=== PATIENT | female | born 1985 | race Caucasian/White ===

== ENCOUNTER 2016-06-18 08:00 | Outpatient (CLI) | payer MEDICAID | END 2016-06-18 08:01 | disposition home or self-care (01) | DX: E03.9 Hypothyroidism, unspecified (principal) ==

== ENCOUNTER 2017-01-04 14:15 | Emergency (ER) | payer MEDICAID ==
--- NOTE | 2017-01-04 14:54 | ED Physician Documentation ---
PD HPI UPPER EXT INJURY - Stated complaint Stated Complaint: R HAND SWELLING - Chief complaint Chief Complaint: Ext Problem - History obtained from History obtained from: Caregiver (Ana María) - History of Present Illness Location: Other (31-year-old woman with Down syndrome, fairly uncooperative and nonverbal. After playing outside today the caregiver noticed a red spot on her palm, no clear injury. Tetanus is up-to-date.) Review of Systems Constitutional: denies: Fever, Chills PD PAST MEDICAL HISTORY - Present Medications Home Medications: Ambulatory Orders Medication Instructions Recorded Confirmed Clindamycin [Cleocin] 300 mg PO Q6H 7 Days 01/04/17 PD ED PE NORMAL - Vitals Vital signs reviewed: Yes - General General: Other (Somewhat cooperative, nonverbal, Down's facies.) - Extremities Extremities: Other (There is a red spot, on the palm, right side, near the third MCP with some surrounding redness but no palpable foreign body. Could be an infection puncture wound. No fluctuance or abscess. She is moving her fingers well ruling out tenosynovitis.) PD MEDICAL DECISION MAKING - ED course ED course: Per the caregiver she would have to be sedated for any intervention/incision and drainage. She is eating during the examination. We discussed options and after discussion the decision was made to trial antibiotics but the caregiver will keep a close eye on the site and return if worse. Departure - Departure Disposition: 01 Home, Self Care Clinical Impression: Cellulitis Qualifiers: Site of cellulitis: extremity Site of cellulitis of extremity: upper extremity Laterality: right Qualified Code(s): L03.113 - Cellulitis of right upper limb Condition: Good Record reviewed to determine appropriate education?: Yes Instructions: Cellulitis Dc Prescriptions: Clindamycin [Cleocin] 300 mg PO Q6H 7 Days Comments: If the redness worsens, if she stops using the hand, or if she develops a fever , or if not better in the next couple of days, please return for reevaluation, ideally do not let her eat or drink for 4 hours prior to arrival for potential sedation.
== END 2017-01-04 15:06 | disposition home or self-care (01) ==
LOC: ED 14:15
DX: L03.113 Cellulitis of right upper limb (principal); Q90.9 Down syndrome, unspecified
CPT/HCPCS: 99282; 99283

== ENCOUNTER 2017-02-02 11:42 | Outpatient (CLI) | payer MEDICAID ==
--- NOTE | 2017-02-04 12:31 | Ultrasound Report ---
SUPERFICIAL ULTRASOUND OF THE RIGHT PALM: 02/02/2017 CLINICAL INDICATION: Rule out foreign body. COMPARISON: None. FINDINGS: Over the area of interest, the right palm, there is a 1.7 cm thin echogenic structure that appears to be a foreign body. There is a small amount of surrounding edema. No other sonographic a bnormality is seen. IMPRESSION: RIGHT PALM FOREIGN BODY DESCRIBED ABOVE, 1.7 CM LONG. JOB #: [id number] EXT JOB #:[id number]
== END 2017-02-02 11:43 | disposition home or self-care (01) ==
LOC: DI 11:42
PROVIDERS: ATTEND Family Medicine
DX: M79.5 Residual foreign body in soft tissue (principal); E11.9 Type 2 diabetes mellitus without complications; E03.9 Hypothyroidism, unspecified
CPT/HCPCS: 36415; 76882; 80048; 84443

== ENCOUNTER 2017-02-02 15:20 | Outpatient (CLI) | payer MEDICAID ==
[2017-02-02 19:38] LABS: CALCIUM 8.7 mg/dL (8.5-10.3); CREATININE 0.8 mg/dL (0.4-1.0); POTASSIUM 3.5 mmol/L (3.5-5.0)
== END 2017-02-02 15:21 | disposition home or self-care (01) ==
LOC: LAB.N 15:20
PROVIDERS: ATTEND Family Medicine
DX: E11.9 Type 2 diabetes mellitus without complications (principal); E03.9 Hypothyroidism, unspecified
CPT/HCPCS: 36415; 80048; 84443

== ENCOUNTER 2017-08-17 08:00 | Outpatient (CLI) | payer MEDICAID ==
[2017-08-17 19:01] LABS: BASOPHILS # (AUTO) 0.1 10^3/uL (0.0-0.1); BASOPHILS % (AUTO) 2.5 %; EOSINOPHILS # (AUTO) 0.1 10^3/uL (0.0-0.7); EOSINOPHILS % (AUTO) 1.4 %; HGB - HEMOGLOBIN 14.1 g/dL (12.0-16.0); LYMPHOCYTES # (AUTO) 1.8 10^3/uL (1.5-3.5); LYMPHOCYTES % (AUTO) 44.9 %; MEAN CORPUSCULAR HEMOGLOBIN 33.5 pg (27.0-31.0); MEAN CORPUSCULAR HGB CONC 32.9 g/dL (32.0-36.0); MEAN CORPUSCULAR VOLUME 101.9 fL (81.0-99.0); MEAN PLATELET VOLUME 9.7 fL (7.9-10.8); MONOCYTES # (AUTO) 0.3 10^3/uL (0.0-1.0); MONOCYTES % (AUTO) 7.6 %; NEUTROPHILS # (AUTO) 1.8 10^3/uL (1.5-6.6); NEUTROPHILS % (AUTO) 43.6 %; PLT - PLATELET COUNT 268 10^3/uL (130-450); RED BLOOD COUNT 4.22 10^6/uL (4.20-5.40); WHITE BLOOD COUNT 4.1 x10^3/uL (4.8-10.8)
[2017-08-17 19:09] LABS: ALBUMIN 3.3 g/dL (3.2-5.5); ALBUMIN/GLOBULIN RATIO 0.8 (1.0-2.2); BILIRUBIN,TOTAL 0.4 mg/dL (0.2-1.0); CALCIUM 8.6 mg/dL (8.5-10.3); CREATININE 0.7 mg/dL (0.4-1.0); TOTAL PROTEIN 7.3 g/dL (6.7-8.2)
[2017-08-17 19:16] LABS: HB2 TOTAL 15.8 g/dL; HEMOGLOBIN A1C 0.52 g/dL; HEMOGLOBIN A1C % 5.2 % (4.6-6.2)
[2017-08-17 19:28] LABS: THYROID STIMULATING HORMONE 5.65 uIU/mL (0.34-5.60)
[2017-08-17 19:29] LABS: FREE T4 (FREE THYROXINE) 0.83 ng/dL (0.58-1.64)
== END 2017-08-17 08:01 | disposition home or self-care (01) ==
LOC: LAB.N 08:00
PROVIDERS: ATTEND Family Medicine
DX: E11.9 Type 2 diabetes mellitus without complications (principal); E03.9 Hypothyroidism, unspecified
CPT/HCPCS: 36415; 80053; 83036; 84439; 84443; 85025

== ENCOUNTER 2018-06-02 11:51 | Outpatient (CLI) | payer MEDICAID ==
[2018-06-02 19:40] LABS: BASOPHILS # (AUTO) 0.1 10^3/uL (0.0-0.1); BASOPHILS % (AUTO) 1.5 %; EOSINOPHILS % (AUTO) 1.1 %; HGB - HEMOGLOBIN 13.3 g/dL (12.0-16.0); LYMPHOCYTES # (AUTO) 1.8 10^3/uL (1.5-3.5); LYMPHOCYTES % (AUTO) 50.9 %; MEAN CORPUSCULAR HEMOGLOBIN 34.1 pg (27.0-31.0); MEAN CORPUSCULAR HGB CONC 33.1 g/dL (32.0-36.0); MEAN CORPUSCULAR VOLUME 103.1 fL (81.0-99.0); MEAN PLATELET VOLUME 9.6 fL (7.9-10.8); MONOCYTES # (AUTO) 0.2 10^3/uL (0.0-1.0); MONOCYTES % (AUTO) 7.1 %; NEUTROPHILS # (AUTO) 1.4 10^3/uL (1.5-6.6); NEUTROPHILS % (AUTO) 39.4 %; PLT - PLATELET COUNT 277 10^3/uL (130-450); RED BLOOD COUNT 3.89 10^6/uL (4.20-5.40); RED CELL DISTRIBUTION WIDTH 12.4 % (12.0-15.0); WHITE BLOOD COUNT 3.5 x10^3/uL (4.8-10.8)
[2018-06-02 19:52] LABS: ALBUMIN 2.8 g/dL (3.2-5.5); ALBUMIN/GLOBULIN RATIO 0.7 (1.0-2.2); ALKALINE PHOSPHATASE 61 IU/L (42-121); ALT ALANINE AMINOTRANSFERASE 17 IU/L (10-60); AST ASPARTATE AMINOTRANSFERASE 19 IU/L (10-42); BILIRUBIN,TOTAL < 0.2 mg/dL (0.2-1.0); BUN - BLOOD UREA NITROGEN 15 mg/dL (6-20); CALCIUM 8.4 mg/dL (8.5-10.3); CARBON DIOXIDE - CO2 25 mmol/L (21-32); CHLORIDE 101 mmol/L (101-111); CREATININE 0.6 mg/dL (0.4-1.0); GFR - MDRD 115 (>89); GLUCOSE 104 mg/dL (70-100); SODIUM 135 mmol/L (135-145); TOTAL PROTEIN 6.9 g/dL (6.7-8.2)
[2018-06-02 19:58] LABS: HEMOGLOBIN A1C 0.5 g/dL; HEMOGLOBIN A1C % 5.4 % (4.6-6.2)
== END 2018-06-02 23:59 | disposition home or self-care (01) ==
LOC: LAB.N 11:51
PROVIDERS: ATTEND Physician Assistant Medical
DX: E03.9 Hypothyroidism, unspecified (principal); Q90.9 Down syndrome, unspecified; Z79.899 Other long term (current) drug therapy
CPT/HCPCS: 36415; 80053; 83036; 84443; 85025

== ENCOUNTER 2019-11-17 08:00 | Outpatient (CLI) | payer MEDICAID ==
[2019-11-17 21:22] LABS: TRICHOMONAS VAGINALIS DNA NEGATIVE (NEGATIVE)
== END 2019-11-17 23:59 | disposition home or self-care (01) ==
LOC: LAB.R 08:00
PROVIDERS: ATTEND Family Medicine
DX: D53.9 Nutritional anemia, unspecified (principal)
CPT/HCPCS: 87491; 87591; 87661

== ENCOUNTER 2020-07-03 08:00 | Outpatient (CLI) | payer MEDICAID ==
[2020-07-03 12:03] LABS: BASOPHILS # (AUTO) 0.1 10^3/uL (0.0-0.1); BASOPHILS % (AUTO) 1.3 %; EOSINOPHILS # (AUTO) 0.1 10^3/uL (0.0-0.7); EOSINOPHILS % (AUTO) 1.3 %; HCT - HEMATOCRIT 42.8 % (37.0-47.0); LYMPHOCYTES % (AUTO) 41.1 %; MEAN CORPUSCULAR HEMOGLOBIN 33.3 pg (27.0-31.0); MEAN CORPUSCULAR HGB CONC 32.7 g/dL (32.0-36.0); MEAN CORPUSCULAR VOLUME 101.9 fL (81.0-99.0); MEAN PLATELET VOLUME 11.7 fL (7.9-10.8); MONOCYTES # (AUTO) 0.4 10^3/uL (0.0-1.0); MONOCYTES % (AUTO) 7.3 %; NEUTROPHILS # (AUTO) 2.3 10^3/uL (1.5-6.6); NEUTROPHILS % (AUTO) 48.8 %; PLT - PLATELET COUNT 285 10^3/uL (130-450); RED CELL DISTRIBUTION WIDTH 12.7 % (12.0-15.0); WHITE BLOOD COUNT 4.8 x10^3/uL (4.8-10.8)
[2020-07-03 12:20] LABS: ESTIMATED AVERAGE GLUCOSE 100 mg/dL (70-100); HEMOGLOBIN A1c% 5.1 % (4.27-6.07)
[2020-07-03 12:26] LABS: ALBUMIN 3.4 g/dL (3.2-5.5); ALBUMIN/GLOBULIN RATIO 0.8 (1.0-2.2); ALKALINE PHOSPHATASE 71 IU/L (42-121); ALT ALANINE AMINOTRANSFERASE 36 IU/L (10-60); AST ASPARTATE AMINOTRANSFERASE 21 IU/L (10-42); BILIRUBIN,TOTAL 0.5 mg/dL (0.2-1.0); BUN - BLOOD UREA NITROGEN 16 mg/dL (6-20); CALCIUM 9.1 mg/dL (8.5-10.3); CARBON DIOXIDE - CO2 23 mmol/L (21-32); CHLORIDE 105 mmol/L (101-111); CHOL/HDL RATIO 2.2 (<4.4); CHOLESTEROL 166 mg/dL; CREATININE 0.8 mg/dL (0.4-1.0); GFR - MDRD 82 (>89); GLUCOSE 102 mg/dL (70-100); HDL CHOLESTEROL 76 mg/dL; LDL CHOLESTEROL,CALCULATED 67 mg/dL; LDL/HDL RATIO 0.9 (<4.4); POTASSIUM 3.8 mmol/L (3.5-5.0); SODIUM 138 mmol/L (135-145); TOTAL PROTEIN 7.5 g/dL (6.7-8.2); TRIGLYCERIDES 115 mg/dL; VLDL CHOLESTEROL 23 mg/dL
[2020-07-03 12:34] LABS: THYROID STIMULATING HORMONE 3.43 uIU/mL (0.34-5.60)
== END 2020-07-03 23:59 | disposition home or self-care (01) ==
LOC: LAB.WCP 08:00
PROVIDERS: ATTEND Family Medicine
DX: E11.9 Type 2 diabetes mellitus without complications (principal)
CPT/HCPCS: 36415; 80053; 80061; 83036; 83721; 84443; 85025

== ENCOUNTER 2021-01-29 14:16 | Outpatient (CLI) | payer MEDICAID ==
[2021-01-29 18:31] LABS: ALBUMIN 3.5 g/dL (3.2-5.5); ALBUMIN/GLOBULIN RATIO 0.9 (1.0-2.2); ALKALINE PHOSPHATASE 70 IU/L (42-121); ALT ALANINE AMINOTRANSFERASE 38 IU/L (10-60); AST ASPARTATE AMINOTRANSFERASE 26 IU/L (10-42); BILIRUBIN,TOTAL 0.4 mg/dL (0.2-1.0); BUN - BLOOD UREA NITROGEN 20 mg/dL (6-20); CALCIUM 9.2 mg/dL (8.5-10.3); CARBON DIOXIDE - CO2 22 mmol/L (21-32); CHLORIDE 105 mmol/L (101-111); CHOL/HDL RATIO 2.4 (<4.4); CHOLESTEROL 179 mg/dL; CREATININE 0.8 mg/dL (0.4-1.0); GFR - MDRD 82 (>89); GLUCOSE 141 mg/dL (70-100); HDL CHOLESTEROL 76 mg/dL; LDL CHOLESTEROL,CALCULATED 70 mg/dL; LDL/HDL RATIO 0.9 (<4.4); POTASSIUM 3.5 mmol/L (3.5-5.0); SODIUM 137 mmol/L (135-145); TOTAL PROTEIN 7.5 g/dL (6.7-8.2); TRIGLYCERIDES 166 mg/dL; VLDL CHOLESTEROL 33 mg/dL
[2021-01-29 18:37] LABS: THYROID STIMULATING HORMONE 4.42 uIU/mL (0.34-5.60)
[2021-01-29 20:16] LABS: ESTIMATED AVERAGE GLUCOSE 103 mg/dL (70-100); HEMOGLOBIN A1c% 5.2 % (4.27-6.07)
[2021-01-29 21:29] LABS: BASOPHILS # (AUTO) 0.1 10^3/uL (0.0-0.1); BASOPHILS % (AUTO) 1.9 %; HCT - HEMATOCRIT 44.4 % (37.0-47.0); HGB - HEMOGLOBIN 13.8 g/dL (12.0-16.0); LYMPHOCYTES # (AUTO) 1.9 10^3/uL (1.5-3.5); LYMPHOCYTES % (AUTO) 46.2 %; MEAN CORPUSCULAR HEMOGLOBIN 34.2 pg (27.0-31.0); MEAN CORPUSCULAR HGB CONC 31.1 g/dL (32.0-36.0); MEAN CORPUSCULAR VOLUME 110.2 fL (81.0-99.0); MEAN PLATELET VOLUME 12.6 fL (7.9-10.8); MONOCYTES # (AUTO) 0.2 10^3/uL (0.0-1.0); MONOCYTES % (AUTO) 4.4 %; NEUTROPHILS # (AUTO) 1.9 10^3/uL (1.5-6.6); NEUTROPHILS % (AUTO) 46.3 %; PLT - PLATELET COUNT 202 10^3/uL (130-450); RED BLOOD COUNT 4.03 10^6/uL (4.20-5.40); RED CELL DISTRIBUTION WIDTH 12.8 % (12.0-15.0); WHITE BLOOD COUNT 4.1 x10^3/uL (4.8-10.8)
[2021-01-29 21:44] LABS: SLIDE REVIEW? Indicated
[2021-01-29 22:22] LABS: PLATELET ESTIMATE, MANUAL NORMAL (130-450,000) (NORMAL); RBC MORPHOLOGY (MULTIPLE) 2+ MACROCYTOSIS (NORMAL)
== END 2021-01-29 23:59 | disposition home or self-care (01) ==
LOC: LAB.WCP 14:16
PROVIDERS: ATTEND Family Medicine
DX: E11.9 Type 2 diabetes mellitus without complications (principal); E03.9 Hypothyroidism, unspecified
CPT/HCPCS: 36415; 80053; 80061; 83036; 83721; 84443; 85025

== ENCOUNTER 2021-03-20 13:54 | Outpatient (CLI) | payer MEDICAID | END 2021-03-20 13:55 | disposition home or self-care (01) | LOC: DI 13:54 | PROVIDERS: ATTEND Family Medicine | DX: Z53.9 Procedure and treatment not carried out, unspecified reason (principal) ==

== ENCOUNTER 2023-06-18 08:00 | Outpatient (CLI) | payer MEDICAID | END 2023-06-18 23:59 | disposition home or self-care (01) | LOC: PC 08:00 | PROVIDERS: ATTEND Nurse Practitioner Gerontology | DX: Z51.5 Encounter for palliative care (principal); N92.5 Other specified irregular menstruation; F91.9 Conduct disorder, unspecified; F43.10 Post-traumatic stress disorder, unspecified; Z79.899 Other long term (current) drug therapy; Q86.0 Fetal alcohol syndrome (dysmorphic); Q90.9 Down syndrome, unspecified; E03.9 Hypothyroidism, unspecified; E11.9 Type 2 diabetes mellitus without complications; Z79.84 Long term (current) use of oral hypoglycemic drugs; Z66 Do not resuscitate | CPT/HCPCS: 99350 ==

== ENCOUNTER 2023-08-11 08:00 | Outpatient (CLI) | payer MEDICAID | END 2023-08-11 23:59 | disposition home or self-care (01) | LOC: PC 08:00 | PROVIDERS: ATTEND Nurse Practitioner Gerontology | DX: Z51.5 Encounter for palliative care (principal); Q90.9 Down syndrome, unspecified; Q86.0 Fetal alcohol syndrome (dysmorphic); F41.9 Anxiety disorder, unspecified; F40.00 Agoraphobia, unspecified; Z79.899 Other long term (current) drug therapy; Z87.42 Personal history of other diseases of the female genital tract; F91.9 Conduct disorder, unspecified; Z63.8 Other specified problems related to primary support group | CPT/HCPCS: 99350 ==

== ENCOUNTER → 2023-09-10 | Outpatient (CLI) | payer MEDICAID | LOC: PC 08:00 | PROVIDERS: ATTEND Nurse Practitioner Gerontology | DX: Z51.5 Encounter for palliative care (principal); F91.9 Conduct disorder, unspecified; E11.9 Type 2 diabetes mellitus without complications; N93.9 Abnormal uterine and vaginal bleeding, unspecified; Q90.9 Down syndrome, unspecified | CPT/HCPCS: 99310 ==

== ENCOUNTER 2023-10-30 08:00 | Outpatient (CLI) | payer MEDICAID ==
[2023-10-30 16:18] LABS: ALBUMIN 3.4 g/dL (3.2-5.5); ALKALINE PHOSPHATASE 51 IU/L (42-121); ALT ALANINE AMINOTRANSFERASE 20 IU/L (10-60); AST ASPARTATE AMINOTRANSFERASE 20 IU/L (10-42); BILIRUBIN,TOTAL 0.2 mg/dL (0.2-1.0); BUN - BLOOD UREA NITROGEN 21 mg/dL (6-20); CALCIUM 8.9 mg/dL (8.5-10.3); CARBON DIOXIDE - CO2 20 mmol/L (21-32); CHLORIDE 106 mmol/L (101-111); CHOLESTEROL 178 mg/dL; CREATININE 0.8 mg/dL (0.6-1.3); GFR - MDRD 80 (>89); GLUCOSE 94 mg/dL (74-104); HDL CHOLESTEROL 59 mg/dL; LDL CHOLESTEROL,CALCULATED 82 mg/dL; LDL/HDL RATIO 1.4 (<4.4); POTASSIUM 3.8 mmol/L (3.5-4.5); SODIUM 136 mmol/L (135-145); TOTAL PROTEIN 6.8 g/dL (6.4-8.9); TRIGLYCERIDES 187 mg/dL; VLDL CHOLESTEROL 37 mg/dL
== END 2023-10-30 23:59 | disposition home or self-care (01) ==
LOC: LAB.N 08:00
PROVIDERS: ATTEND Nurse Practitioner Gerontology
DX: Q90.9 Down syndrome, unspecified (principal); E11.9 Type 2 diabetes mellitus without complications; Q86.0 Fetal alcohol syndrome (dysmorphic)
CPT/HCPCS: 36415; 80053; 80061; 82607; 82746; 83036; 83721; 84443; 85025

== ENCOUNTER 2023-10-30 08:00 | Outpatient (CLI) | payer MEDICAID | END 2023-10-30 23:59 | disposition home or self-care (01) | LOC: PC 08:00 | PROVIDERS: ATTEND Nurse Practitioner Gerontology | DX: Z51.5 Encounter for palliative care (principal); Q89.9 Congenital malformation, unspecified; Q90.9 Down syndrome, unspecified; Q86.0 Fetal alcohol syndrome (dysmorphic); E03.9 Hypothyroidism, unspecified; R41.89 Other symptoms and signs involving cognitive functions and awareness; R47.01 Aphasia; Z02.89 Encounter for other administrative examinations; Z71.89 Other specified counseling | CPT/HCPCS: 99350 ==

== ENCOUNTER 2023-11-11 08:00 | Outpatient (CLI) | payer MEDICAID | END 2023-11-11 23:59 | disposition home or self-care (01) | LOC: PC 08:00 | PROVIDERS: ATTEND Nurse Practitioner Gerontology | DX: Z51.5 Encounter for palliative care (principal); Q90.9 Down syndrome, unspecified | CPT/HCPCS: 99426 ==